=== PATIENT | female | born 1965 ===

== ENCOUNTER 2020-07-13 05:40 | Day surgery (SDC) | payer OTHER ==
[2020-07-13] MEDS ORDERED: NEXIUM 24HR20 MG PO (08:02)
== END 2020-07-13 10:00 | disposition home or self-care (01) ==
LOC: AMB-ENDOS 05:40
PROVIDERS: ATTEND Surgery
DX: D13.1 Benign neoplasm of stomach (principal); Z20.828 Contact with and (suspected) exposure to other viral communicable diseases; K44.9 Diaphragmatic hernia without obstruction or gangrene